=== PATIENT | male | born 1950 | race Caucasian/White ===

== ENCOUNTER 2017-02-12 11:35 | Day surgery (SDC) | payer OTHER ==
[~2017-02-12] VITALS: Ht 180.3 cm; Wt 79.8 kg
[~2017-02-12 11:35] MED LIST: ASPI81TA3 PO; OMEP40CA6 PO; SIME250C PO
[2017-02-12 12:49] VITALS: Ht 180.3 cm; Wt 79.8 kg
[2017-02-12 12:59] VITALS: BP 146/76; PULSE 52; RESP 16
[2017-02-12 13:00] VITALS: BP 146/76; PULSE 73; RESP 24
[2017-02-12] MEDS ORDERED: LIDOCAINE 2% (SDV) 5 ML INJ ONE (13:28)
[2017-02-12] MEDS ORDERED: PROPOFOL 20 ML ONE (13:28)
[2017-02-12 14:41] VITALS: BP 134/74; PULSE 62; RESP 22
--- NOTE | 2017-02-18 04:14 | GILP ---
DATE OF PROCEDURE: 02/12/2017 PROCEDURE PERFORMED: colonoscopy. INDICATION: Follow up of adenomatous colonic polyps. SURGEON: Bulmaro Ibarra MD FINDINGS: After informed consent, the patient was placed in lateral position and sedated per anesthesia. The Olympus video colonoscope was easily passed into the patient's rectum. The instrument was advanced through the sigmoid, descending, transverse, ascending colon to the cecum. The appendiceal orifice and ileocecal valve were identified. These appeared normal. The ileocecal valve was traversed. Normal ileum was encountered. The instrument was then slowly removed through the ascending, transverse and descending colon. The mucosa throughout appeared normal. 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 In the sigmoid colon there were 2 polypoid lesions seen. The smaller one approximately 3 cm in size was removed in total with jumbo biopsy forceps. The larger one was a sessile lesion 6 mm in size, removed with electrocautery snare. There was bleeding sites. In the sigmoid colon rare diverticula were noted. Retroflexion procedure was performed. No additional lesions were noted. The instrument was removed from the patient's rectum. The patient tolerated the procedure well. COMPLICATIONS: None. IMPRESSION: 1. Start time 1332 hours, cecal time 1342 hours, end time 1401 hours, withdrawal time 20 minutes. 2. Quality of preparation good. PLAN: 1. Postoperative condition of patient. 2. Follow up pending pathology. Dictated By: Bulmaro Ibarra MD /[email or web address]/raza /Document#: [id number]
== END 2017-02-12 16:39 | disposition home or self-care (01) ==
LOC: GIL 11:35
PROVIDERS: ATTEND Internal Medicine Gastroenterology
DX: D12.6 Benign neoplasm of colon, unspecified (principal); K63.5 Polyp of colon; K57.30 Diverticulosis of large intestine without perforation or abscess without bleeding; G47.30 Sleep apnea, unspecified